=== PATIENT | female | born 1960 | race Caucasian/White ===

== ENCOUNTER 2017-05-07 09:59 | Outpatient (CLI) | payer BC ==
[2017-05-07 10:48] LABS: Hematocrit 40.1 % (36.0-47.0); Mean Platelet Volume 6.2 fL (7.4-10.4); Red Blood Cell (RBC) Count 4.49 mill/uL (4.20-5.40); White Blood Cell (WBC) Count 7.3 thou/uL (4.8-10.8)
== END 2017-05-07 10:00 | disposition home or self-care (01) ==
LOC: LABBT 09:59
PROVIDERS: ATTEND Obstetrics & Gynecology
DX: Z01.818 Encounter for other preprocedural examination (principal); N95.0 Postmenopausal bleeding
CPT/HCPCS: 85027; 86850; 86900; 86901

== ENCOUNTER 2017-05-08 05:57 | Day surgery (SDC) | payer BC ==
[2017-05-07 10:22] VITALS: BMI 30.2
[2017-05-08] MEDS ORDERED: Fentanyl 100 MCG/2 ML VIAL ONE (07:09)
[2017-05-08] MEDS ORDERED: Promethazine HCl 25 MG/ML VIAL ONE (07:24)
[2017-05-08] MEDS ORDERED: Midazolam HCl 2 mg/2 ml Vial ONE (07:25)
[2017-05-08] MEDS ORDERED: Ondansetron HCl/PF 4 MG/2 ML Vial ONE (07:37)
[2017-05-08] MEDS ORDERED: Propofol 200 MG/20 ML VIAL ONE (07:37)
[2017-05-08] MEDS ORDERED: Ketorolac Tromethamine 30 MG/ML VIAL ONE (07:37)
[2017-05-08] MEDS ORDERED: PHENYLEPHRINE-NS 100 MCG/ML 10 ML SYRINGE ONE (07:37)
[2017-05-08] MEDS ORDERED: Lidocaine 1% PF 5 ML VIAL ONE (07:37)
[2017-05-08] MEDS ORDERED: ePHEDrine/0.9% NaCl/PF SYRINGE 50 mg/10 ml ONE (07:37)
[2017-05-08] MEDS ORDERED: Dexamethasone 20 MG/5 ML VIAL ONE (07:37)
--- NOTE | 2017-05-08 09:14 | OP ---
DATE OF SURGERY: 05/08/2017 PREOPERATIVE DIAGNOSIS: Postmenopausal uterine bleeding, possible endometrial polyp. POSTOPERATIVE DIAGNOSES: Postmenopausal uterine bleeding, possible endometrial polyp. PATHOLOGY: Pending. PROCEDURE: Hysteroscopy, dilation of the cervix and directed curettage of the uterine cavity and ex cision of anterior fundal uterine polyp. SURGEON: Jhonathan Velarde M.D. ANESTHESIA: LMA and TIVA by [employer] (see their notes for details). OPERATIVE FINDINGS: Included approximately a 0.5 x 0.75 cm sessile polypoid mass on the anterior ut erine fundus that appeared benign. There were no other abnormalities of the uterine cavity and the rest of the cavity appeared to be atrophic and benign. OPERATIVE COMPLICATIONS: None. BLOOD LOSS: Less than 10 mL. There were no drains. Video photographs are available and pathology is pending. Procedure as follo ws. DESCRIPTION OF THE PROCEDURE: The patient was taken to the operating room where she was given anest hetic. She was prepped and draped and placed in lithotomy position. The cervix was grasped with single tooth tenaculum and the cervix was dilated progressively to a 16 dilator and the 6 mm 0 degree hysteroscope was inserted using saline, good visualization was obtaine d. Video photographs were taken of the pathology, which was small fundal polyp, which was subsequen tly excised with the Truclear incision device. There was no bleeding from the uterine site. Hyster ectomy was completed and the only bleeding was minimal from the tenaculum site on the cervix, which was treated with silver nitrate. She was taken to the recovery room having tolerated the procedure and anesthesia well.
--- NOTE | 2017-05-08 19:33 | DIS ---
See operative notes, path report and history and physical for further details. HOSPITAL COURSE: Basically, this is a 57-year-old multipara who came in with postmenopausal bleedin g and endometrial biopsy was benign showing disordered endometrium, but her endometrium measured 14 mm and it was elected to proceed with an hysteroscopy, D\T\C, and possible polyp removal to rule out malignancy. On 05/08/2017, the patient underwent LMA tube anesthesia, she was placed in the lithotomy position a nd had a hysteroscopy, D\T\C, and use of the trochlear device to remove a small anterior fundal poly p. The surgery was uncomplicated. There was minimal bleeding. She had no postoperative problems. Her initial hematocrit was 43% and her vital signs remained stable throughout her time at the [facility]. She was tolerating liquids and ambulatory and had minimal pain and was ready for discharge [facility] approximately 2 hours after the procedure. IMPRESSION AND FINAL DIAGNOSIS: Postmenopausal uterine bleeding, probably due to benign polyp. Marleny cobb pending. PLAN: Discharge the patient home on Advil for pain. She has been given strict warnings and instruc tions regarding emergency care and followup as planned in 2 weeks.
== END 2017-05-08 09:52 | disposition home or self-care (01) ==
LOC: SDC 05:57
PROVIDERS: ATTEND Obstetrics & Gynecology
PROC: 0UDB8ZX Extraction of Endometrium, Via Natural or Artificial Opening Endoscopic, Diagnostic (ICD-10-PCS; principal; 2017-05-08)
PROC: 0UB98ZX Excision of Uterus, Via Natural or Artificial Opening Endoscopic, Diagnostic (ICD-10-PCS; principal; 2017-05-08)
DX: N84.0 Polyp of corpus uteri (principal); Z88.2 Allergy status to sulfonamides; Z79.899 Other long term (current) drug therapy; Z98.890 Other specified postprocedural states; Z83.49 Family history of other endocrine, nutritional and metabolic diseases; Z82.3 Family history of stroke
CPT/HCPCS: 88305; J1100; J1885; J2001; J2250; J2405; J2550; J2704; J3010

== ENCOUNTER 2017-07-25 08:00 | Outpatient (CLI) | payer BC | END 2017-07-25 08:01 | disposition home or self-care (01) | LOC: BICMAMMO 08:00 | PROVIDERS: ATTEND Obstetrics & Gynecology | DX: Z12.31 Encounter for screening mammogram for malignant neoplasm of breast (principal) | CPT/HCPCS: 77067; G0202 ==

== ENCOUNTER 2017-12-14 08:05 | Outpatient (CLI) | payer BC | END 2017-12-14 08:06 | disposition home or self-care (01) | LOC: BICULT 08:05 | PROVIDERS: ATTEND Internal Medicine Geriatric Medicine | DX: R10.11 Right upper quadrant pain (principal); K76.0 Fatty (change of) liver, not elsewhere classified; D13.5 Benign neoplasm of extrahepatic bile ducts | CPT/HCPCS: 76705 ==

== ENCOUNTER 2021-05-25 09:57 | Outpatient (CLI) | payer BC | END 2021-05-25 09:58 | disposition home or self-care (01) | LOC: BICMAMMO 09:57 | PROVIDERS: ATTEND Family Medicine | DX: Z12.31 Encounter for screening mammogram for malignant neoplasm of breast (principal) | CPT/HCPCS: 77063; 77067 ==

== ENCOUNTER 2022-06-22 08:05 | Outpatient (CLI) | payer BC | END 2022-06-22 08:06 | disposition home or self-care (01) | LOC: BICCT 08:05 | PROVIDERS: ATTEND Family Medicine | DX: R10.32 Left lower quadrant pain (principal) | CPT/HCPCS: 74177; 82565 ==

== ENCOUNTER 2022-08-17 07:50 | Outpatient (CLI) | payer BC | END 2022-08-17 07:51 | disposition home or self-care (01) | LOC: BICMAMMO 07:50 | PROVIDERS: ATTEND Family Medicine | DX: Z12.31 Encounter for screening mammogram for malignant neoplasm of breast (principal) | CPT/HCPCS: 77063; 77067 ==

== ENCOUNTER 2022-11-14 14:03 | Outpatient (CLI) | payer BC ==
[~2022-11-14 14:03] MED LIST: Magnevist 469MG/ML 20 ML VIAL ONE
== END 2022-11-14 14:04 | disposition home or self-care (01) ==
LOC: TBSIIMAG 14:03
PROVIDERS: ATTEND Student in an Organized Health Care Education/Training Program
DX: M67.441 Ganglion, right hand (principal)

== ENCOUNTER 2024-07-09 07:34 | Outpatient (CLI) | payer BC | END 2024-07-09 07:35 | disposition home or self-care (01) | LOC: ULT 07:34 | PROVIDERS: ATTEND Internal Medicine | DX: R10.11 Right upper quadrant pain (principal); Z12.11 Encounter for screening for malignant neoplasm of colon; R12 Heartburn; K76.0 Fatty (change of) liver, not elsewhere classified | CPT/HCPCS: 76700 ==

== ENCOUNTER 2024-08-01 08:10 | Outpatient (CLI) | payer BC | END 2024-08-01 08:11 | disposition home or self-care (01) | LOC: BICMAMMO 08:10 | PROVIDERS: ATTEND Student in an Organized Health Care Education/Training Program | DX: Z12.31 Encounter for screening mammogram for malignant neoplasm of breast (principal); Z85.828 Personal history of other malignant neoplasm of skin | CPT/HCPCS: 77063; 77067 ==

== ENCOUNTER 2024-08-25 12:36 | Outpatient (CLI) | payer BC ==
[2024-08-25] MEDS ORDERED: Bacteriostatic Normal Saline 30 ML VIAL ONE (13:01)
[2024-08-25] MEDS ORDERED: Sterile Water 10 ML ONE (13:01)
[2024-08-25] MEDS ORDERED: Sincalide 5 MCG VIAL ONE (13:01)
== END 2024-08-25 12:37 | disposition home or self-care (01) ==
LOC: NM 12:36
PROVIDERS: ATTEND Internal Medicine
DX: R10.11 Right upper quadrant pain (principal)
CPT/HCPCS: 78227; A9537; J2805